=== PATIENT | male | born 1960 | race Caucasian/White ===

== ENCOUNTER 2020-07-04 14:21 | Outpatient (REF) | payer OTHER, SELFPAY | END 2020-07-04 14:22 | disposition home or self-care (01) | LOC: HO.LAB 14:21 | PROVIDERS: Visit Provider Internal Medicine | DX: Z20.828 Contact with and (suspected) exposure to other viral communicable diseases (principal) | CPT/HCPCS: C9803; U0003 ==

== ENCOUNTER 2020-08-07 10:36 | Outpatient (REF) | payer OTHER, SELFPAY ==
[2020-08-08 22:03] LABS: Transglutaminase Ab IgG 4 U/mL; Transglutaminase IgA 1 U/mL
[2020-08-10 22:47] LABS: Gliadin Deamidated IgA Ab 8 Units; Gliadin Deamidated IgG Ab 7 Units
[2020-08-11 17:52] LABS: Immunoglobulin A 229 mg/dL (47-310)
[2020-08-12 14:47] LABS: Endomysial IgA Antibody Negative (Negative)
== END 2020-08-07 10:37 | disposition home or self-care (01) ==
LOC: HO.10HDL 10:36
PROVIDERS: Visit Provider Internal Medicine
DX: K58.9 Irritable bowel syndrome, unspecified (principal)
CPT/HCPCS: 36415; 82784; 83516; 86255; 86256

== ENCOUNTER 2020-09-26 14:07 | Outpatient (REF) | payer OTHER, SELFPAY | END 2020-09-26 14:08 | disposition home or self-care (01) | LOC: HO.LNP 14:07 | PROVIDERS: Visit Provider Internal Medicine | DX: Z20.822 Contact with and (suspected) exposure to COVID-19 (principal); J06.9 Acute upper respiratory infection, unspecified | CPT/HCPCS: U0003 ==

== ENCOUNTER 2020-10-01 13:55 | Outpatient (REF) | payer OTHER, SELFPAY ==
--- NOTE | 2020-10-01 14:02 | XR_ITS ---
EXAMINATION: XR CHEST CLINICAL INFORMATION: Chest wall pain, cough COMPARISON: Chest 2006 TECHNIQUE: 2 views of the chest were obtained. FINDINGS: The lungs are well-expanded with no acute pneumonic process seen. The heart size and pulmonary vascularity is normal. No gross bony abnormality seen. XR/XR chest 2V IMPRESSION: Unremarkable chest exam.
== END 2020-10-01 13:56 | disposition home or self-care (01) ==
LOC: HO.XRAY 13:55
PROVIDERS: PCP Internal Medicine; Visit Provider Internal Medicine
DX: R05 Cough (principal)
CPT/HCPCS: 71046

== ENCOUNTER 2021-02-06 14:09 | Outpatient (REF) | payer OTHER, SELFPAY ==
[2021-02-06 17:06] LABS: Anion Gap 16 (12-20); Blood Urea Nitrogen 13 mg/dL (9-16); Calcium 9.8 mg/dL (8.4-10.2); Carbon Dioxide 27 mmol/L (22-29); Chloride 100 mmol/L (96-108); Estimated Glomerular Filt Rate > 60; Glucose Random 96 mg/dL (60-115); Potassium 3.7 mmol/L (3.3-5.1); Sodium 139 mmol/L (135-145)
== END 2021-02-06 14:10 | disposition home or self-care (01) ==
LOC: HO.HMGCLDS 14:09
PROVIDERS: PCP Internal Medicine; Visit Provider Internal Medicine
DX: I10 Essential (primary) hypertension (principal)
CPT/HCPCS: 36415; 80048

== ENCOUNTER 2021-07-21 12:12 | Outpatient (REF) | payer OTHER, SELFPAY ==
--- NOTE | ~2021-07-21 | XR_ITS ---
EXAMINATION: XR LUMBAR SPINE 2-3V XR CERVICAL SPINE MIN 6V CLINICAL INFORMATION: Reason for Exam PAIN COMPARISON: CT abdomen/pelvis dated 02/29/2020 TECHNIQUE: 3 views of the lumbar spine 5 views of the cervical spine FINDINGS: Lumbar spine: No acute fracture or traumatic malalignment. Vertebral body heights maintained. Mild loss of disc space height at L5-S1. Moderate facet arthropathy at L5-S1 and L4-L5. Mild facet arthropathy at L3-L4. Minimal levoconvex lumbar scoliosis. Mild bilateral sacroiliac arthrosis. Paraspinal soft tissues unremarkable. Bilateral nonobstructive intrarenal calculi. Cervical spine: No acute fracture or traumatic malalignment. Vertebral body heights maintained. Mild loss of disc space height at C3-C4. Moderate loss of disc space height at C4-C5 and C5-C6. Small endplate osteophytes and facet arthropathy present throughout the cervical spine. Oblique views demonstrate at least moderate left osseous neural foraminal encroachment at C4-C5 and C5-C6 and mild osseous neural foraminal encroachment on the right at C3-C4 and C4-C5. Paraspinal soft tissues unremarkable. XR/XR cervical spine min 6V IMPRESSION: No acute findings. Lumbar and cervical spondylosis as detailed above.
--- NOTE | ~2021-07-21 | XR_ITS ---
EXAMINATION: XR LUMBAR SPINE 2-3V XR CERVICAL SPINE MIN 6V CLINICAL INFORMATION: Reason for Exam PAIN COMPARISON: CT abdomen/pelvis dated 02/29/2020 TECHNIQUE: 3 views of the lumbar spine 5 views of the cervical spine FINDINGS: Lumbar spine: No acute fracture or traumatic malalignment. Vertebral body heights maintained. Mild loss of disc space height at L5-S1. Moderate facet arthropathy at L5-S1 and L4-L5. Mild facet arthropathy at L3-L4. Minimal levoconvex lumbar scoliosis. Mild bilateral sacroiliac arthrosis. Paraspinal soft tissues unremarkable. Bilateral nonobstructive intrarenal calculi. Cervical spine: No acute fracture or traumatic malalignment. Vertebral body heights maintained. Mild loss of disc space height at C3-C4. Moderate loss of disc space height at C4-C5 and C5-C6. Small endplate osteophytes and facet arthropathy present throughout the cervical spine. Oblique views demonstrate at least moderate left osseous neural foraminal encroachment at C4-C5 and C5-C6 and mild osseous neural foraminal encroachment on the right at C3-C4 and C4-C5. Paraspinal soft tissues unremarkable. XR/XR lumbar spine 2-3V IMPRESSION: No acute findings. Lumbar and cervical spondylosis as detailed above.
== END 2021-07-21 12:13 | disposition home or self-care (01) ==
LOC: HO.XRAY 12:12
PROVIDERS: Visit Provider Chiropractor Neurology
DX: M54.59 Other low back pain (principal); M54.2 Cervicalgia
CPT/HCPCS: 72052; 72100